=== PATIENT | female | born 1985 | race Caucasian/White ===

== ENCOUNTER → 2017-07-29 | Outpatient (CLI) | payer OTHER ==
[~2017-07-29] MED LIST: AMPHETAMINE SAL10 MG PO; CIPRO 500MG TA500 MG PO; FLEXERIL10 MG PO; HYDROCODONE1 TABLET PO; IBU-8800 MG PO; KEFLEX 500MG.500 MG PO; LORTAB 5/500 501 TAB PO; MACROBID 100MG100 MG PO; MEDROL 4MG. DOSE4 MG PO; MOTRIN800 MG PO; ORTHO EVRA1 TD2 TD; ORTHO EVRA1 TDM TD; PEPCID20 MG OR; PHENERGAN 25MG.25 M1 PO; TAMIFLU 75MG CA75 MG PO; VISTARIL25 MG PO; ZOFRAN4 MG PO; ZYRTEC 10MG TAB10 MG OR; ZYRTEC ALLERGY10 MG PO
[2017-07-29 09:25] LABS: HEMOGLOBIN 14.9 g/dL (12.2-16.2); LYMPH # 1.8 K/mm3 (0.7-4.5); LYMPH % 31.6 % (10-50.0)
[2017-07-29 10:20] LABS: URINE BLOOD NEGATIVE (NEG)
[2017-07-29 10:22] LABS: URINE BILIRUBIN - DIPSTICK NEGATIVE (NEG)
[2017-07-29 10:30] LABS: URINE SQUAMOUS CELLS OCC #/hpf (0-5)
[2017-07-29 11:29] LABS: BUN 14 mg/dL (7-18)
[2017-07-29 11:30] LABS: GFR (ESTIMATED) 84 ML/MIN (59-)
== END ==
LOC: LAB 09:09
PROVIDERS: Emergency Medicine
DX: R39.89 Other symptoms and signs involving the genitourinary system (principal); E03.9 Hypothyroidism, unspecified; Z79.899 Other long term (current) drug therapy